=== PATIENT | male | born 2000 | race Caucasian/White ===

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

== ENCOUNTER 2022-04-18 19:20 | Emergency (ER) | payer MEDICAID ==
[~2022-04-18] VITALS: Ht 175.3 cm; Wt 127.0 kg
[2022-04-18 19:28] VITALS: BP 168/88
== END 2022-04-18 20:24 | disposition left against medical advice (07) ==
LOC: ER 19:20
DX: Z53.21 Procedure and treatment not carried out due to patient leaving prior to being seen by health care provider (principal)

== ENCOUNTER 2022-06-23 11:30 | Emergency (ER) | payer MEDICAID ==
[~2022-06-23] VITALS: Ht 165.1 cm; Wt 80.0 kg
[2022-06-23 11:42] VITALS: BP 160/82
[2022-06-23] MEDS ORDERED: IBUP-2029 MT (13:06)
[2022-06-23] MEDS ORDERED: AMOX1TAB16 MT (13:06)
== END 2022-06-23 14:15 | disposition home or self-care (01) ==
LOC: ER 11:30
DX: L05.91 Pilonidal cyst without abscess (principal); F12.10 Cannabis abuse, uncomplicated
CPT/HCPCS: 99283